=== PATIENT | female | born 1980 | race Caucasian/White ===

== ENCOUNTER 2018-03-04 12:14 | Emergency (ER) | payer OTHER ==
[~2018-03-04] VITALS: Ht 175.3 cm; Wt 57.2 kg
[2018-03-04] MEDS ORDERED: IV NORMAL SALINE 1000 ML BAG IV ONE (12:30)
[2018-03-04] MEDS ORDERED: LORAZEPAM 2 MG/1 ML VIAL IV ONE (12:30)
[2018-03-04] MEDS ORDERED: ONDANSETRON 4 MG/2 ML VIAL IV ONE (12:30)
[2018-03-04] MEDS ORDERED: ONDANSETRON 4 MG/2 ML VIAL ONE (12:31)
[2018-03-04] MEDS ORDERED: LORAZEPAM 2 MG/1 ML VIAL ONE (12:32)
[2018-03-04 12:51] LABS: BASOPHILS % (AUTO) 0.3 % (0.0-2.0); EOSINOPHILS % (AUTO) 0.1 % (0.0-7.0); HEMATOCRIT 44.1 % (31.2-41.9); HEMOGLOBIN 14.8 g/dL (10.9-14.3); LYMPHOCYTES # (AUTO) 0.4 K/uL (20.0-40.0); LYMPHOCYTES % (AUTO) 3.5 % (20.5-51.5); MEAN CORPUSCULAR HEMOGLOBIN 30.1 uug (24.7-32.8); MEAN CORPUSCULAR HGB CONC 34 g/dL (32.3-35.6); MEAN CORPUSCULAR VOLUME 89.7 fL (75.5-95.3); MONOCYTES # (AUTO) 0.4 K/uL (2.0-10.0); MONOCYTES % (AUTO) 3.4 % (0.0-11.0); NEUTROPHILS # (AUTO) 10.9 K/uL (1.8-8.9); NEUTROPHILS % (AUTO) 92.7 % (38.5-71.5); PLATELET COUNT (AUTO) 289 K/uL (179-408); RED BLOOD CELL COUNT(AUTO) 4.92 MIL/uL (3.63-4.92); WHITE BLOOD COUNT (AUTO) 11.7 K/uL (3.8-11.8)
[2018-03-04 12:55] LABS: CREATININE 0.9 mg/dL (0.6-1.3); POTASSIUM 3.5 mmol/L (3.5-5.1)
[2018-03-04 13:00] LABS: BILIRUBIN,DIRECT 0.2 mg/dL (0.0-0.2); BILIRUBIN,TOTAL 1.2 mg/dL (0.2-1.0)
[2018-03-04] MEDS ORDERED: HALOPERIDOL LACTATE 5 MG/1 ML VIAL IV ONE (13:15)
[2018-03-04] MEDS ORDERED: HALOPERIDOL LACTATE 5 MG/1 ML VIAL ONE (13:31)
[2018-03-04 13:54] VITALS: BP 119/71
--- NOTE | 2018-03-04 13:54 | NUR ---
Patient discharged to home in stable conditon. Written and verbal after care instructions given. Patient verbalizes understanding of instructions.pt not driving. pt with family member. pt deneis any nausea at this point.
== END 2018-03-04 13:55 | disposition home or self-care (01) ==
LOC: ER 12:18
DX: F41.9 Anxiety disorder, unspecified (principal); J45.909 Unspecified asthma, uncomplicated; Z88.5 Allergy status to narcotic agent; Z91.040 Latex allergy status
CPT/HCPCS: 36415; 80048; 80076; 85025; 96361; 96374; 96375; 99284; A4663; J1630; J2060; J2405; J7030